=== PATIENT | female | born 1975 | race Caucasian/White ===

== ENCOUNTER 2020-02-21 06:18 | Emergency (ER) | payer OTHER, SELFPAY ==
--- NOTE | ~2020-02-21 | CT_ITS ---
EXAMINATION: CT facial bones wo con DATE: 02/21/2020 07:17 INDICATION: Left eye pain and swelling after fall TECHNIQUE: Computed tomography (CT) of the facial bones and maxillofacial region was performed withou t intravenous contrast. The dose-length product (DLP) was 335.84 mGy-cm. Automated exposure control a nd iterative reconstruction technique were employed. COMPARISON: None. FINDINGS: There is left preseptal periorbital soft tissue swelling. The facial soft tissues are unrem arkable. The globes are intact. No facial bone fracture is identified. The paranasal sinuses are juan carlos r. IMPRESSION: 1. Left periorbital soft tissue swelling without associated facial fracture. Reviewed, dictated and finalized at location A.
--- NOTE | ~2020-02-21 | CT_ITS ---
EXAMINATION: CT brain wo con INDICATION: Head injury COMPARISON: None TECHNIQUE: Standard unenhanced head CT. The dose-length product (DLP) was 605.33 mGy-cm. The mA was a djusted according to patient size. Iterative reconstruction technique was employed. FINDINGS: A left periorbital hematoma is noted. There is no intracranial hemorrhage, acute infarction , or abnormal mass lesion. The ventricles are normal. There is no abnormal mass effect or midline reji ft. The prabhakar-white matter differentiation is normal. The basal cisterns are patent. The orbits are no rmal. The paranasal sinuses, mastoids and calvarium are normal. IMPRESSION: 1. Left periorbital hematoma without acute intracranial abnormality. Reviewed, dictated and finalized at location A.
[2020-02-21 06:23] VITALS: BP 116/86; PULSE 90; RESP 20; TEMP 37.1; O2SAT 97
--- NOTE | 2020-02-21 06:36 | ED.GENADULT ---
HPI - General Adult General Chief complaint: Fall Stated complaint: fall Time Seen by Provider: 02/21/20 06:21 Source: RN notes reviewed History of Present Illness HPI narrative: Patient presents emergency department from home for a fall. Patient states last night she fell striking her left eyebrow on a metal deer statue. She states she had some mild swelling at that time that progressed this morning with complete swelling of the upper eyelid. Patient denies any loss of consciousness. She denies any other injuries from the fall. She states that she is on Xarelto for history of blood clots. Patient denies any vision change after the initial fall and denies any pain of the actual eyeball itself. Denies neck pain numbness or tingling in the extremities or any other symptoms. States last tetanus shot was 2 years ago Related Data Allergies Allergy/AdvReac Type Severity Reaction Status Date / Time NSAIDS (Non-Steroidal Allergy Unknown Verified 02/21/20 06:27 Anti-Inflamma Review of Systems Review of Systems: Narrative: Gen.: Denies fevers or chills Eyes: Denies eye pain or visual change ENT: See HPI Respiratory: Denies shortness of breath CV: Denies chest pain GI: Denies abdominal pain nausea, emesis Musculoskeletal: Denies back pain Neuro: Denies numbness, tingling, or headache Skin: Denies rash Except as documented, all other systems reviewed and negative [facility] Past Medical History Medical History (Updated 02/21/20 @ 08:46 by Esvin Avila DO) DVT (deep venous thrombosis) Social History Social History (Updated 02/21/20 @ 08:46 by Esvin Avila DO) Smoking packs per day: 0.25 Smoking cigarettes per day: 5.0 Gender identity (if verbalized by the patient): Female Exam Narrative: Exam Narrative: APPEARANCE: No acute distress, nontoxic, resting in bed EYES: EOMI, Estefany, no conjunctival erythema full range of motion of the eye without pain HEENT: Normocephalic, the left eyebrow and upper eyelid are swollen with left eyelid completely swollen shut, TMs clear bilaterally, nares patent, oral mucosa moist Neck: Supple, nontender to palpation no midline tenderness palpation full range of motion without pain RESPIRATORY: No respiratory distress Clear to auscultation bilaterally with no rhonchi wheezing or rales. CARDIOVASCULAR: Regular rate and rhythm without murmurs rubs or gallops. ABDOMINAL: Soft, nontender, nondistended, no rebound or guarding MUSCULOSKELETAl: Moves all extremities. No clubbing, cyanosis or edema. NEURO: Awake and alert x 3. Following commands, speech normal, no focal deficits SKIN:: Warm, dry. Small abrasion over left eyebrow with no active bleeding PSYCHIATRIC: Normal affect/mood, Course Course Emergency Course: Discussed with patient results of workup and diagnosis. Discussed need for follow-up with primary care, proper use of medication, and reasons to return to the emergency department. Patient understands and agrees to current treatment plan Vital Signs Vital signs: Vital Signs Temperature 98.7 F 02/21/20 06:23 Pulse Rate 90 02/21/20 06:23 Respiratory Rate 20 02/21/20 06:23 Blood Pressure 116/86 02/21/20 06:23 Pulse Oximetry 97 02/21/20 06:23 Temperature 98.7 F 02/21/20 06:23 Pulse Rate 87 02/21/20 08:38 Respiratory Rate 18 02/21/20 08:38 Blood Pressure 108/78 02/21/20 08:38 Pulse Oximetry 98 02/21/20 08:38 Medical Decision Making Vital Signs Vital Signs: Vital Signs Temperature 98.7 F 02/21/20 06:23 Pulse Rate 90 02/21/20 06:23 Respiratory Rate 20 02/21/20 06:23 Blood Pressure 116/86 02/21/20 06:23 Pulse Oximetry 97 02/21/20 06:23 Temperature 98.7 F 02/21/20 06:23 Pulse Rate 87 02/21/20 08:38 Respiratory Rate 18 02/21/20 08:38 Blood Pressure 108/78 02/21/20 08:38 Pulse Oximetry 98 02/21/20 08:38 Imaging Data Radiologist's impression: ITS Impressions Head CT 02/21/20 07:44 IMPRES
[2020-02-21 08:38] VITALS: BP 108/78; PULSE 87; RESP 18; O2SAT 98
== END 2020-02-21 08:59 | disposition home or self-care (01) ==
PROVIDERS: Emergency Provider Emergency Medicine
DX: S00.12XA Contusion of left eyelid and periocular area, initial encounter (principal); Z86.718 Personal history of other venous thrombosis and embolism; F17.210 Nicotine dependence, cigarettes, uncomplicated; Z79.01 Long term (current) use of anticoagulants; W01.198A Fall on same level from slipping, tripping and stumbling with subsequent striking against other object, initial encounter
CPT/HCPCS: 70450; 70486; 99284